=== PATIENT | female | born 1970 | race Caucasian/White ===

== ENCOUNTER 2021-07-23 11:25 | Outpatient (CLI) | payer OTHER ==
--- NOTE | 2021-07-23 13:11 | XRAY Report ---
PROCEDURE: Finger(s) LT INDICATIONS: PAIN IN FINGER OF LEFT HAND, 5TH DIGIT TECHNIQUE: AP hand, 3 views of the fifth finger(s) acquired. COMPARISON: None. FINDINGS: Bones: No fractures or dislocations. No suspicious bony lesions. Severe fifth distal interphalangea l joint space narrowing and periarticular osteophyte formation. Bony erosions are present. Soft tissues: No suspicious soft tissue calcifications. Periventricular soft tissue swelling. IMPRESSION: Severe joint space narrowing with periarticular osteophyte formation and soft tissue swelling. There are bony erosions. 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 Recom mend correlation with serum markers. Reviewed by: Edgar English MD on 07/23/2021 1:10 PM PST Approved by: Edgar English MD on 07/23/2021 1:10 PM PST Station ID: [id number]
== END 2021-07-23 11:26 | disposition home or self-care (01) ==
LOC: DI 11:25
PROVIDERS: ATTEND Nurse Practitioner Family
DX: M19.042 Primary osteoarthritis, left hand (principal)

== ENCOUNTER 2022-12-01 14:49 | Outpatient (CLI) | payer OTHER ==
--- NOTE | 2022-12-03 12:12 | Mammography Report ---
BILATERAL DIGITAL SCREENING MAMMOGRAM 3D/2D WITH EXAGGERATED CC: 12/01/2022 CLINICAL: Routine screening. No prior exams were available for comparison. Both breasts are extremely dense, which lowers the sensitivity of mammography (category d />75% gland ular tissue). No significant masses, calcifications, or other findings are seen in either breast. IMPRESSION: NEGATIVE There is no mammographic evidence of malignancy. A 1 year screening mammogram is recommended. Based on Tyrer-Cuzick model (a risk assessment model), the patient's lifetime risk is 20.7% and her 1 0 year risk is 5.9%. If a patient has an elevated risk, a more comprehensive evaluation should be con sidered and/or a referral to a genetic counselor. The [place] [employer], [employer], and NCCN Guidelines advise the consideration of Breast MRI as an adjunct to screening mammog john in patients whose "Lifetime risk to develop breast cancer" is 20% or higher. This exam was interpreted at Station ID: [id number]. NOTE: For mammograms, a report in lay terms will be sent to the patient. Approximately 15% of breast malignancies will not be visualized mammographically. In the management of a palpable breast mass, a negative mammogram must not discourage biopsy of a clinically suspicious lesion. Electronically Signed By: Michelle [email or web address]/brit:12/02/2022 10:38:42 letter sent: No_Letter ACR BI-RADS Category 1: Negative 3341F PARENCHYMAL PATTERN: (VD) - The breast(s) demonstrate(s) extremely dense parenchyma, limiting the sen sitivity of mammography. BI-RADS CATEGORY: (1) - 1 Mammogram [id number] 1 year screening LATERALITY: (B)
== END 2022-12-01 14:50 | disposition home or self-care (01) ==
LOC: DI.S 14:49
PROVIDERS: ATTEND Nurse Practitioner Family
DX: Z12.31 Encounter for screening mammogram for malignant neoplasm of breast (principal)